=== PATIENT | female | born 1965 | race Native Hawaiian/Other Pacific Islander ===

== ENCOUNTER 2023-11-24 14:43 | Emergency (ER) | payer MEDICAID, OTHER ==
[~2023-11-24] VITALS: Ht 154.9 cm; Wt 59.0 kg
[2023-11-24 15:02] VITALS: TEMP 98.6
[2023-11-24 16:43] LABS: Basophils # (auto) 0 10 ^3/uL (0-0.2); Basophils % (auto) 0.2 % (0.0-2.0); Eosinophils # (auto) 0 10 ^3/uL (0-0.8); Eosinophils % (auto) 0.8 % (0.0-7.0); Hematocrit 41.3 % (36.0-46.0); Hemoglobin 13.4 g/dL (12.2-16.2); Lymphocytes # (auto) 0.9 10 ^3/uL (0.4-5.4); Lymphocytes % (auto) 17.3 % (10.0-50.0); Mean Corpuscular Hemoglobin 27.8 pg (28.0-32.0); Mean Corpuscular Hgb Conc. 32.5 g/dL (32.0-36.0); Mean Corpuscular Volume 85.5 fL (80.0-100.0); Monocytes # (auto) 0.4 10 ^3/uL (0-1.3); Monocytes % (auto) 7.9 % (0.0-12.0); Neutrophils # (auto) 3.7 10 ^3/uL (1.6-8.6); Neutrophils % (auto) 73.8 % (37.0-80.0); Nucleated Red Blood Cells % 0.1 %; Red Blood Cells 4.83 10^6/uL (4.0-5.20); White Blood Cell 5.1 10^3/uL (4.4-10.8)
[2023-11-24 16:58] LABS: Platelet Estimate Decreased
[2023-11-24 17:01] LABS: Chloride 107 mmol/L (98-107); Potassium 3.3 mmol/L (3.5-5.1); Sodium 141 mmol/L (136-145)
[2023-11-24 17:02] LABS: Anion Gap 7 (5-15); Carbon Dioxide 27 mmol/L (20-30)
[2023-11-24 17:03] LABS: Calcium 9.6 mg/dL (8.7-10.4)
[2023-11-24 17:08] LABS: BUN/Creatinine Ratio 17.3 (10.0-20.0); Blood Urea Nitrogen 13 mg/dL (9-23); Glucose 92 mg/dL (74-106)
[2023-11-24 18:00] VITALS: BP 166/95; PULSE 98; RESP 19; O2SAT 99
== END 2023-11-24 18:08 | disposition home or self-care (01) ==
LOC: EDBD 14:43 → ER 14:43
DX: R55 Syncope and collapse (principal); R10.31 Right lower quadrant pain; R10.32 Left lower quadrant pain; Z98.811 Dental restoration status
CPT/HCPCS: 36415; 80048; 85025; 93005

== ENCOUNTER 2024-02-17 16:44 | Emergency (ER) | payer MEDICAID ==
[~2024-02-17] VITALS: Ht 149.9 cm; Wt 42.5 kg
[2024-02-17 18:01] LABS: Urine Bacteria None Seen /hpf (None Seen); Urine WBC None Seen /hpf (0 - 5)
[2024-02-17 18:45] LABS: Urine Amorphous Crystal FEW /hpf (None Seen); Urine Blood Negative /uL (Negative); Urine Clarity Clear (Clear); Urine Color Colorless (Yellow); Urine Protein, UAD Negative (Negative); Urine Specific Gravity 1.006 (1.001-1.035); Urine Urobilinogen Normal (Negative); Urine pH 7.5 (5.0-9.0)
[2024-02-17 19:43] LABS: Basophils # (auto) 0 10 ^3/uL (0-0.2); Basophils % (auto) 0.4 % (0.0-2.0); Eosinophils # (auto) 0.1 10 ^3/uL (0-0.8); Hematocrit 36.4 % (36.0-46.0); Hemoglobin 11.9 g/dL (12.2-16.2); Lymphocytes # (auto) 0.6 10 ^3/uL (0.4-5.4); Mean Corpuscular Hemoglobin 27.5 pg (28.0-32.0); Mean Corpuscular Hgb Conc. 32.8 g/dL (32.0-36.0); Mean Corpuscular Volume 83.7 fL (80.0-100.0); Monocytes # (auto) 0.4 10 ^3/uL (0-1.3); Monocytes % (auto) 9.8 % (0.0-12.0); Neutrophils # (auto) 2.5 10 ^3/uL (1.6-8.6); Neutrophils % (auto) 69.8 % (37.0-80.0); Nucleated Red Blood Cells % 0.1 %; Red Blood Cells 4.35 10^6/uL (4.0-5.20); Red Cell Distribution Width 13.8 % (11.8-14.3); White Blood Cell 3.6 10^3/uL (4.4-10.8)
[2024-02-17 20:01] LABS: INR 1.06 (0.9-1.15); Partial Thromboplastin Time 32.8 SEC (24.5-34.5); Prothrombin Time 11.1 sec (9.3-11.8)
[2024-02-17 20:09] LABS: Alanine Aminotransferase 22 U/L (7-40); Alkaline Phosphatase 83 U/L (46-116); Anion Gap 3 (5-15); Aspartate Aminotransferase 24 U/L (13-40); Bilirubin, Total 0.4 mg/dL (0.2-1.0); Blood Urea Nitrogen 16 mg/dL (9-23); Calcium 9.6 mg/dL (8.7-10.4); Carbon Dioxide 29 mmol/L (20-30); Chloride 106 mmol/L (98-107); Glucose 88 mg/dL (74-106); Potassium 3.7 mmol/L (3.5-5.1); Sodium 138 mmol/L (136-145); Total Protein 6.7 g/dL (5.7-8.2)
[2024-02-17] MEDS ORDERED: BENZ200C64 PO (21:28)
[2024-02-17] MEDS ORDERED: ALBUAER3 IN (21:28)
[2024-02-17 22:33] VITALS: BP 112/69; PULSE 88; RESP 18; O2SAT 99
== END 2024-02-17 23:09 | disposition home or self-care (01) ==
LOC: ER 16:44
DX: D69.6 Thrombocytopenia, unspecified (principal); R05.9 Cough, unspecified; Z87.898 Personal history of other specified conditions; Z98.890 Other specified postprocedural states; Z79.899 Other long term (current) drug therapy
CPT/HCPCS: 36415; 76705; 80053; 81001; 85025; 85610; 85730

== ENCOUNTER 2024-08-17 18:03 | Inpatient (IN) | payer MEDICAID ==
[~2024-08-17] VITALS: Ht 149.9 cm; Wt 44.2 kg
[~2024-08-17 18:03] MED LIST: ALBUAER3 IN; BENZ200C64 PO
[2024-08-17 18:29] LABS: Basophils # (auto) 0 10 ^3/uL (0-0.2); Basophils % (auto) 0.5 % (0.0-2.0); Eosinophils # (auto) 0.1 10 ^3/uL (0-0.8); Eosinophils % (auto) 2.7 % (0.0-7.0); Hematocrit 38.3 % (36.0-46.0); Hemoglobin 12.6 g/dL (12.2-16.2); Lymphocytes % (auto) 24.8 % (10.0-50.0); Mean Corpuscular Hemoglobin 27.6 pg (28.0-32.0); Mean Corpuscular Hgb Conc. 32.8 g/dL (32.0-36.0); Monocytes # (auto) 0.3 10 ^3/uL (0-1.3); Monocytes % (auto) 8.4 % (0.0-12.0); Neutrophils # (auto) 2.5 10 ^3/uL (1.6-8.6); Neutrophils % (auto) 63.6 % (37.0-80.0); Nucleated Red Blood Cells % 0.1 %; Platelet Count (auto) 118 10^3/uL (140-450); Red Blood Cells 4.56 10^6/uL (4.0-5.20); Red Cell Distribution Width 13.6 % (11.8-14.3); White Blood Cell 3.9 10^3/uL (4.4-10.8)
[2024-08-17 18:46] LABS: Alanine Aminotransferase 14 U/L (7-40); Albumin 4.6 g/dL (3.2-4.8); Alkaline Phosphatase 88 U/L (46-116); Anion Gap 5 (5-15); Aspartate Aminotransferase 16 U/L (13-40); BUN/Creatinine Ratio 15.4 (10.0-20.0); Blood Urea Nitrogen 12 mg/dL (9-23); Calcium 9.7 mg/dL (8.7-10.4); Carbon Dioxide 29 mmol/L (20-31); Chloride 107 mmol/L (98-107); Glucose 90 mg/dL (74-106); Potassium 3.8 mmol/L (3.5-5.1); Sodium 141 mmol/L (136-145)
[2024-08-17 18:47] LABS: Bilirubin, Total 0.5 mg/dL (0.2-1.0); Total Protein 7.1 g/dL (5.7-8.2)
[2024-08-17 22:00] VITALS: PULSE 69; RESP 18; O2SAT 100
[2024-08-17] MEDS ORDERED: hydrALAZINE HCL 20 MG/ML VL IV PRN (23:15)
[2024-08-17] MEDS: ATORVASTATIN 20 MG TAB PO ONE (23:31)
[2024-08-17] MEDS: ACETAMINOPHEN 500 MG TAB PO PRN (23:31)
[2024-08-17] MEDS: ASPirin-EC 81 mg tab PO ONE (23:31)
[2024-08-17] MEDS ORDERED: PANTOPRAZOLE 40 MG/10 ML VIAL INJ IV ONE (23:45)
[2024-08-17] MEDS ORDERED: KETOROLAC TROMETH 30 MG/ML 1ML VIAL IV PRN (23:45)
[2024-08-17 23:51] LABS: INR 1.06 (0.9-1.15); Partial Thromboplastin Time 31.3 SEC (24.5-34.5); Prothrombin Time 11.2 sec (9.3-11.8)
[2024-08-18] VITALS (19 sets, daily range): BP systolic 105–145; BP diastolic 71–92; PULSE 60–80; RESP 14–20; TEMP 97.5–98.1; O2SAT 98–100
[2024-08-18] MEDS: PANTOPRAZOLE 40 MG TAB PO ONE (00:07)
[2024-08-18 00:40] LABS: Erythrocyte Sedimentation Rate 12 mm/hr (0-20)
[2024-08-18 02:30] LABS: COVID19 ANTIGEN SOFIA FIA NEGATIVE (NEGATIVE)
[2024-08-18 04:04] LABS: Urine Bacteria None Seen /hpf (None Seen)
[2024-08-18 04:11] LABS: Urine Blood Negative /uL (Negative); Urine Clarity Clear (Clear); Urine Protein, UAD Negative (Negative); Urine Specific Gravity 1.006 (1.001-1.035); Urine Urobilinogen Normal (Negative); Urine WBC <1 /hpf (0 - 5); Urine pH 7.5 (5.0-9.0)
[2024-08-18 04:15] LABS: Urine Color STRAW (Yellow)
[2024-08-18 04:27] LABS: Amphetamine Screen, Urine Neg (NEGATIVE); Barbiturate Scree,Urine Neg (NEGATIVE); Benzodiazephine Screen, Urine Neg (NEGATIVE); Cocaine Screen, Urine Neg (NEGATIVE)
[2024-08-18 04:28] LABS: Cannabinoid Screen, Urine Neg (NEGATIVE); Opiate Scree,Urine Neg (NEGATIVE); Phencyclidine Screen, Urine Neg (NEGATIVE)
[2024-08-18] MEDS ORDERED: IPRATROPIUM BROM 0.5 MG/2.5ML INH SOL NEB SCH (08:00)
[2024-08-18] MEDS ORDERED: hydrOXYzine HCL 10 MG TAB PO PRN (08:30)
[2024-08-18 09:18] LABS: Chloride 108 mmol/L (98-107); Potassium 3.4 mmol/L (3.5-5.1); Sodium 142 mmol/L (136-145)
[2024-08-18 09:19] LABS: Anion Gap 6 (5-15); Carbon Dioxide 28 mmol/L (20-31)
[2024-08-18 09:20] LABS: Calcium 9.6 mg/dL (8.7-10.4)
[2024-08-18 09:24] LABS: Basophils # (auto) 0 10 ^3/uL (0-0.2); Basophils % (auto) 0.4 % (0.0-2.0); Eosinophils # (auto) 0.1 10 ^3/uL (0-0.8); Eosinophils % (auto) 3.1 % (0.0-7.0); Glucose 111 mg/dL (74-106); Hematocrit 40.5 % (36.0-46.0); Hemoglobin 13.6 g/dL (12.2-16.2); Lymphocytes # (auto) 0.7 10 ^3/uL (0.4-5.4); Lymphocytes % (auto) 20.7 % (10.0-50.0); Mean Corpuscular Hemoglobin 28.4 pg (28.0-32.0); Mean Corpuscular Hgb Conc. 33.6 g/dL (32.0-36.0); Mean Corpuscular Volume 84.3 fL (80.0-100.0); Monocytes # (auto) 0.2 10 ^3/uL (0-1.3); Monocytes % (auto) 6.5 % (0.0-12.0); Neutrophils # (auto) 2.5 10 ^3/uL (1.6-8.6); Neutrophils % (auto) 69.3 % (37.0-80.0); Nucleated Red Blood Cells % 0.1 %; Platelet Count (auto) 103 10^3/uL (140-450); Red Blood Cells 4.81 10^6/uL (4.0-5.20); Red Cell Distribution Width 13.8 % (11.8-14.3); White Blood Cell 3.6 10^3/uL (4.4-10.8)
[2024-08-18 09:25] LABS: BUN/Creatinine Ratio 11.9 (10.0-20.0); Blood Urea Nitrogen 8 mg/dL (9-23)
[2024-08-18 09:36] LABS: Triglycerides 69 mg/dL (< 150)
[2024-08-18 09:37] LABS: LDL Cholesterol 86 mg/dL (< 100)
[2024-08-18 09:38] LABS: Cholesterol 149 mg/dL (< 200); HDL Cholesterol 60 mg/dL (40-59)
[2024-08-18] MEDS: ENOXAPARIN SOD 40 MG/0.4 ML SYRINGE SC SCH (10:00)
[2024-08-18] MEDS ORDERED: ENOXAPARIN SOD 30 MG/0.3 ML SYRINGE SC SCH (10:00)
[2024-08-18] MEDS: POTASSIUM EFFERVESENT TAB 25 MEQ PO ONE (10:01)
[2024-08-18] MEDS: ASPirin-EC 81 mg tab PO SCH (10:01)
[2024-08-18] MEDS: CYANOCOBALAMIN (B-12) 1000 MCG/1 ML VIAL IM ONE (10:02)
[2024-08-18 10:44] LABS: Hepatitis B Core Total AB Negative (Negative)
[2024-08-18] MEDS: IPRATROPIUM BROM 0.5 MG/2.5ML INH SOL NEB SCH (11:01)
[2024-08-18 12:11] LABS: Hepatitis A Total Antibody Positive (Negative); Hepatitis B Surface Antibody Positive (Negative); Hepatitis B Surface Antigen Negative (Negative)
[2024-08-18 12:13] LABS: Hepatitis C Antibody Positive (Negative)
[2024-08-18] MEDS ORDERED: ALBUTEROL SULF 2.5 MG/0.5ML(0.5%) NEB SOLN NEB SCH (14:00)
[2024-08-18] MEDS: ALBUTEROL SULF 2.5 MG/0.5ML(0.5%) NEB SOLN NEB SCH (15:12)
[2024-08-18] MEDS: amLODIPine BESYLATE 5 MG TAB PO ONE (15:22)
[2024-08-18] MEDS: ATORVASTATIN 20 MG TAB PO SCH (21:28)
[2024-08-19] VITALS (15 sets, daily range): BP systolic 95–128; BP diastolic 67–81; PULSE 44–82; RESP 16–20; TEMP 97.6–98.6; O2SAT 94–100
[2024-08-19 09:30] LABS: Chloride 109 mmol/L (98-107); Potassium 3.4 mmol/L (3.5-5.1); Sodium 143 mmol/L (136-145)
[2024-08-19 09:31] LABS: Anion Gap 5 (5-15); Calcium 9.4 mg/dL (8.7-10.4); Carbon Dioxide 29 mmol/L (20-31)
[2024-08-19 09:36] LABS: BUN/Creatinine Ratio 13.9 (10.0-20.0); Blood Urea Nitrogen 10 mg/dL (9-23); Glucose 151 mg/dL (74-106)
[2024-08-19] MEDS ORDERED: amLODIPine BESYLATE 5 MG TAB PO SCH (10:00)
[2024-08-19] MEDS ORDERED: SORE THROAT SPRAY 6OZ BOTTLE MT PRN (11:00)
[2024-08-19] MEDS: NIFEdipine ER 30 MG TAB PO SCH (12:16)
[2024-08-19] MEDS: POTASSIUM EFFERVESENT TAB 25 MEQ PO ONE (12:16)
[2024-08-19] MEDS ORDERED: NIFE1TAB31 PO (14:18)
[2024-08-19] MEDS ORDERED: ATOR20TA50 PO (14:18)
== END 2024-08-19 23:00 | disposition home or self-care (01) | DRG 199 ==
LOC: ER 18:03 → TELE 23:06 → TELE-CENTR 23:06
PROVIDERS: ADMIT Internal Medicine; ATTEND Internal Medicine
DX: I16.0 Hypertensive urgency (principal); D69.6 Thrombocytopenia, unspecified; K74.60 Unspecified cirrhosis of liver; E87.6 Hypokalemia; F41.1 Generalized anxiety disorder; I10 Essential (primary) hypertension; B19.20 Unspecified viral hepatitis C without hepatic coma; F32.A Depression, unspecified; D72.819 Decreased white blood cell count, unspecified; J44.9 Chronic obstructive pulmonary disease, unspecified; Z82.49 Family history of ischemic heart disease and other diseases of the circulatory system; Z80.0 Family history of malignant neoplasm of digestive organs; Z83.3 Family history of diabetes mellitus
CPT/HCPCS: 36415; 71045; 74176; 76705; 80048; 80053; 80061; 80307; 81001; 82105; 82306; 82607; 83036; 83880; 84443; 84484; 85025; 85610; 85652; 85730; 86141; 86704; 86706; 86708; 86803; 87040; 87340; 87426; 93005; 93306; 94640; 99291; G0378